=== PATIENT | male | born 1960 | race Caucasian/White ===

== ENCOUNTER 2020-11-22 08:26 | Outpatient (CLI) | payer OTHER, SELFPAY ==
--- NOTE | 2020-11-22 08:52 | XR_ITS ---
WS: [id number] FOOT RIGHT TECHNIQUE: 2 views of the right foot CLINICAL INFORMATION: BONE SPURS COMPARISON: None. FINDINGS: Osteopenia. Pes planus. Plantar calcaneal spur. No acute fractures. Normal metatarsals. IP joint narr owing. XR/XR foot RT 2V [id number] IMPRESSION: 1. Osteopenia. 2. Prominent plantar calcaneal spur measuring 6.4 mm. Pes planus. 3. No acute fractures.
== END 2020-11-22 08:27 | disposition home or self-care (01) ==
LOC: RADWPI 08:33
PROVIDERS: Visit Provider Chiropractor
DX: M77.31 Calcaneal spur, right foot (principal); M85.871 Other specified disorders of bone density and structure, right ankle and foot
CPT/HCPCS: 73620

== ENCOUNTER 2021-02-07 12:00 | Outpatient (CLI) | payer OTHER, SELFPAY | END 2021-02-07 12:01 | disposition home or self-care (01) | LOC: SLEEP 02-08 17:08 | PROVIDERS: Visit Provider Nurse Practitioner Family | DX: G47.10 Hypersomnia, unspecified (principal) | CPT/HCPCS: G0399 ==

== ENCOUNTER → 2024-09-03 07:49 | Outpatient (BNVA) | payer OTHER, SELFPAY | PROVIDERS: PCP Nurse Practitioner Family; Visit Provider Podiatrist Foot & Ankle Surgery | DX: M79.671 Pain in right foot (principal); M72.2 Plantar fascial fibromatosis | CPT/HCPCS: 73630; 99203 ==

== ENCOUNTER → 2025-03-26 13:44 | Outpatient (BNVA) | payer OTHER, SELFPAY | PROVIDERS: PCP Nurse Practitioner Family; Visit Provider Podiatrist Foot & Ankle Surgery | DX: M72.2 Plantar fascial fibromatosis (principal) | CPT/HCPCS: 99213 ==

== ENCOUNTER 2025-04-23 13:04 | Outpatient (RCR) | payer OTHER, SELFPAY | END 2025-05-06 23:59 | disposition home or self-care (01) | LOC: TPT 13:04 | PROVIDERS: Visit Provider Family Medicine Geriatric Medicine | DX: M72.2 Plantar fascial fibromatosis (principal) | CPT/HCPCS: 97110; 97161 ==